=== PATIENT | male | born 1995 | race Caucasian/White ===

== ENCOUNTER 2018-09-14 06:18 | Emergency (ER) | payer OTHER ==
[~2018-09-14] VITALS: Ht 190.5 cm; Wt 100.7 kg
[2018-09-14] MEDS ORDERED: PEPCID AC20 MG PO (13:10)
[2018-09-14] MEDS ORDERED: ONDANSETRON ODT4 MG PO (13:10)
[2018-09-14] MEDS ORDERED: INTESTINEX680 M1 PO (13:10)
[2018-09-14] MEDS ORDERED: LEVSIN/SL0.125 MG SL (13:10)
== END 2018-09-14 13:27 | disposition home or self-care (01) ==
LOC: ER 06:18
DX: K29.70 Gastritis, unspecified, without bleeding (principal)

== ENCOUNTER 2019-01-22 13:27 | Emergency (ER) | payer OTHER ==
[~2019-01-22] VITALS: Ht 190.5 cm; Wt 99.8 kg
[~2019-01-22 13:27] MED LIST: INTESTINEX680 M1 PO; LEVSIN/SL0.125 MG SL; ONDANSETRON ODT4 MG PO; PEPCID AC20 MG PO
[2019-01-23] MEDS ORDERED: ZOFRAN4 MG PO (15:35)
== END 2019-01-22 15:56 | disposition home or self-care (01) ==
LOC: ER 13:27
DX: K52.9 Noninfective gastroenteritis and colitis, unspecified (principal)

== ENCOUNTER 2019-01-23 13:28 | Emergency (ER) | payer OTHER ==
[~2019-01-23] VITALS: Ht 190.5 cm; Wt 99.8 kg
[2019-01-23] MEDS ORDERED: ZOFRAN4 MG PO (15:35)
== END 2019-01-23 17:30 | disposition home or self-care (01) ==
LOC: ER 13:28
DX: K52.9 Noninfective gastroenteritis and colitis, unspecified (principal); E86.0 Dehydration